=== PATIENT | male | born 2000 | race Caucasian/White ===

== ENCOUNTER 2022-02-10 02:52 | Emergency (ER) | payer BC, SELFPAY ==
[2022-02-10] VITALS (10 sets, daily range): BP systolic 110–135; BP diastolic 66–79; PULSE 44–65; RESP 18; TEMP 36.7; O2SAT 98–100; BMI 23.0
--- NOTE | 2022-02-10 02:57 | CRLHL7_ITS ---
For Patients: As a result of the Century Cures Act, medical imaging exams and procedure reports are released immediately into your electronic medical record. You may view this report before your referring provider. If you have questions, please contact your health care provider. INDICATION: Abdominal pain TECHNIQUE: CT abdomen and pelvis acquired with 81 cc Isovue 370 IV contrast. COMPARISON: None FINDINGS: Lower chest: Unremarkable. Liver: Unremarkable. Spleen: Unremarkable. Pancreas: Unremarkable. Gallbladder and bile ducts: Unremarkable. Adrenal glands: Unremarkable. Kidneys: Unremarkable. GI tract: Unremarkable. Appendix is normal. Vascular structures: Unremarkable. Lymph nodes: Unremarkable. Miscellaneous: Unremarkable. No free air or significant free fluid. Pelvic Organs: Unremarkable. Bones: Unremarkable for age. IMPRESSION: Unremarkable CT of the abdomen and pelvis. Please note that all CT scans at this facility use dose modulation, iterative reconstruction, and/or weight-based dosing when appropriate to reduce radiation dose to as low as reasonably achievable. Dictated by Hillary Pepper MD @ 02/10/2022 4:02:12 AM (Electronically Signed)
[2022-02-10] MEDS: 0.9 % SODIUM CHLORIDE 1000 ml 1,000 ML IV (03:05)
[2022-02-10 03:13] LABS: Lactate* 1.2 mmol/L (0.5-1.9)
[2022-02-10] MEDS: KETOROLAC 30 MG/ML inj IVP (03:13)
[2022-02-10 03:19] LABS: Basophils Percent Auto 0.3 % (0.0-3.0); Eosinophils Percent Auto 0.6 % (0.0-7.0); Hemoglobin* 16.2 gm/dL (13.5-17.5); Immature Granulocytes Pct Auto 0.7 %; Lymphocytes Percent Auto 12.8 % (20-44); Mean Corpuscular HGB Conc 36 gm/dL (32-36); Mean Corpuscular Hemoglobin 32 pg (26-34); Mean Corpuscular Volume 88 fL (80-100); Monocytes Percent Auto 5.2 % (0.0-11.0); Neutrophils Percent Auto 80.4 % (42.0-72.0); Platelet Count* 234 K/uL (140-440); RDW Coefficient of Variation % 11.9 % (11.5-15.5); Red Blood Count 5.09 m/uL (4.30-5.90); White Blood Count* 11.73 K/uL (4.50-11.00)
[2022-02-10 03:20] LABS: Slide Review Reflex No
[2022-02-10 03:27] LABS: Albumin* 5.1 g/dL (3.3-5.0); Chloride* 106 mmol/L (96-114)
[2022-02-10 03:28] LABS: Potassium* 3.2 mmol/L (3.6-5.1); Sodium* 139 mmol/L (135-149)
--- NOTE | 2022-02-10 03:29 | ED.ABDPAIN ---
HPI - Abdominal Pain General Chief Complaint: Abdominal Pain Stated Complaint: Stomach hurts Time Seen by Provider: 02/10/22 02:54 History of Present Illness HPI narrative: Pt is a 21 year old gentleman who comes in with 8 hours of midabdominal pain. No radiation. No change in his bowels. No fever or chills. Pain is severe and sharp. No dysuria. Pt has not had any recent change in his weight or night sweats. Pt has no nausea or vomiting. No sick contacts or travel. Pt has not taken any medications at home for his symptoms. Related Data Home Medications Medication Instructions Recorded Confirmed No Known Home Medications 02/10/22 02/10/22 Allergies Allergy/AdvReac Type Severity Reaction Status Date / Time No Known Drug Allergies Allergy Verified 02/10/22 03:01 Review of Systems Status of ROS Reports: 10 or more systems reviewed and unremarkable except as noted in History and below [facility] Medical History No significant past medical history Surgical History No significant past surgical history Social History Smoking Status: Never smoker Do you use any of these nicotine containing products: None Second hand tobacco smoke exposure: No How often do you have a drink containing alcohol: never How often do you have six or more drinks on one occasion: Never AUDIT-C Alcohol total score: 0 Non-prescribed substance use: marijuana (any form) Exam Narrative: Exam Narrative: EXAM GENERAL: Patient appears comfortable and well. EYES: No scleral icterus. ENT: Tympanic membranes and oropharynx normal. THYROID: no thyroid nodules or thyromegaly. LYMPH: No supraclavicular or cervical lymphadenopathy. SKIN: Visible skin seen during exam normal or with benign process only. EXT: No dependent lower extremity pedal edema. HEART: Regular rate and rhythm with no murmurs, rubs, or gallops. LUNGS: Clear to auscultation bilaterally with no crackles or wheezes. ABD: Soft, non tender, non distended. PSYCH: Good eye contact, speech is not pressured. Const: Vital Signs, click to edit/add: Vital Signs - 24 hr 02/10/22 02:59 02/10/22 03:13 02/10/22 03:19 Temperature 98.1 F 98.1 F Pulse Rate 60 Pulse Rate [Right Pulse Oximeter] 65 Respiratory Rate 18 18 Blood Pressure 120/66 Blood Pressure [Ri ght Upper Arm] 135/79 Pulse Oximetry 99 100 Oxygen Delivery Me thod Room Air 02/10/22 03:00 02/10/22 03:49 Temperature 98.1 F Pulse Rate Pulse Rate [Right Pulse Oximeter] Respiratory Rate Blood Pressure Blood Pressure [Ri ght Upper Arm] Pulse Oximetry 98 Oxygen Delivery Me thod Course Course Hospital Course: Pt seen and examined. Pt received one liter ns and 30 mg of zofran iv. CBC, CMP, Lactate, Amylase, UA, CT abd and pelvis with IV contrast ordered. Reevaluation(s) Reevaluation #1: CT abd and pelvis, Lactate, Amylase normal. CBC shows mild elevation of white blood count. Time: 04:16 Vital Signs Vital signs: Initial Vital Signs Temperature 98.1 F 02/10/22 02:59 Temperature Source Temporal Artery Scan 02/10/22 02:59 Pulse Rate 65 02/10/22 02:59 Respiratory Rate 18 02/10/22 02:59 Blood Pressure 135/79 02/10/22 02:59 Blood Pressure Mean 97 02/10/22 02:59 Blood Pressure Position Supine 02/10/22 02:59 Pulse Oximetry 99 02/10/22 02:59 Oxygen Delivery Method 02/10/22 02:59 Vital Signs Temperature 98.1 F 02/10/22 02:59 Pulse Rate 65 02/10/22 02:59 Respiratory Rate 18 02/10/22 02:59 Blood Pressure 135/79 02/10/22 02:59 Pulse Oximetry 99 02/10/22 02:59 Oxygen Delivery Method 02/10/22 02:59 Temperature 98.1 F 02/10/22 03:49 Pulse Rate 60 02/10/22 03:19 Respiratory Rate 18 02/10/22 03:19 Blood Pressure 120/66 02/10/22 03:19 Pulse Oximetry 100 02/10/22 03:19 Oxygen Delivery Method 02/10/22 02:59 MDM - Abdominal Pain MDM Narrative Medical decision making narrative: Pt presents with severe abd pain. Workup shows only leukocytosis. CT abd and pelvis normal. Exam normal. Vitals normal. Pt given 1 liter normal saline and 30 mg of Toradol. Still having pain. Given Tylenol 1000 mg. Unable to produce a urine sample. At this time, will treat with symptomatic care and watchful waiting. Discharged with close follow up with tylenol, motrin, rest and fluids. Differential Diagnosis Differential diagnosis: Likely abdominal pain, acute appendicitis, calculus of kidney, constipation, diverticulitis, endometriosis, gastroenteritis, pancreatitis and small bowel obstruction Lab Data Labs: Lab Results 02/10/22 02/10/22 02/10/22 Range/Units 03:00 03:00 03:00 WBC 11.73 H (4.50-11.00) K/uL RBC 5.09 (4.30-5.90) m/uL Hgb 16.2 (13.5-17.5) gm/dL Hct 45.0 (37.0-53.0) % MCV 88 (80-100) fL MCH 32 (26-34) pg MCHC 36 (32-36) gm/dL RDW Coeff of Sharri 11.9 (11.5-15.5) % Plt Count 234 (140-440) K/uL Neut % (Auto) 80.4 H (42.0-72.0) % Lymph % (Auto) 12.8 L (20-44) % [place] % (Auto) 5.2 (0.0-11.0) % Eos % (Auto) 0.6 (0.0-7.0) % Baso % (Auto) 0.3 (0.0-3.0) % Neut # (Auto) 9.40 H (1.7-7.0) K/uL Lymph # (Auto) 1.50 (0.90-2.90) K/uL [place] # (Auto) 0.60 (0.00-0.90) K/UL Eos # (Auto) 0.10 (0.00-0.50) K/uL Baso # (Auto) 0.00 (0.00-0.30) K/uL Abs Immat Gran (auto) 0.10 (0.00-0.30) K/uL Imm/Tot Granulo (auto) 0.7 % Sodium 139 (135-149) mmol/L Potassium 3.2 L (3.6-5.1) mmol/L Chloride 106 (96-114) mmol/L Carbon Dioxide 19 L (20-32) mmol/L BUN 18 (5-24) mg/dL Creatinine 0.8 (0.6-1.2) mg/dL Estimated Creat Clear 157.22 Estimated GFR 131 ml/min Glucose 133 H (60-115) mg/dL Lactate 1.2 (0.5-1.9) mmol/L Calcium 10.0 (8.7-10.8) mg/dL Total Bilirubin 0.6 (0.1-1.5) mg/dL AST 28 (12-35) U/L ALT 29 (4-50) U/L Alkaline Phosphatase 118 (65-260) U/L Total Protein 8.1 (6.0-8.3) g/dL Albumin 5.1 H (3.3-5.0) g/dL Amylase 110 H (18-89) U/L SARS-CoV-2 (PCR) (Negative) Influenza Type A (PCR) (Negative) Influenza Type B (PCR) (Negative) RSV (PCR) (Negative) 02/10/22 Range/Units 03:03 WBC (4.50-11.00) K/uL RBC (4.30-5.90) m/uL Hgb (13.5-17.5) gm/dL Hct (37.0-53.0) % MCV (80-100) fL MCH (26-34) pg MCHC (32-36) gm/dL RDW Coeff of Sharri (11.5-15.5) % Plt Count (140-440) K/uL Neut % (Auto) (42.0-72.0) % Lymph % (Auto) (20-44) % [place] % (Auto) (0.0-11.0) % Eos % (Auto) (0.0-7.0) % Baso % (Auto) (0.0-3.0) % Neut # (Auto) (1.7-7.0) K/uL Lymph # (Auto) (0.90-2.90) K/uL [place] # (Auto) (0.00-0.90) K/UL Eos # (Auto) (0.00-0.50) K/uL Baso # (Auto) (0.00-0.30) K/uL Abs Immat Gran (auto) (0.00-0.30) K/uL Imm/Tot Granulo (auto) % Sodium (135-149) mmol/L Potassium (3.6-5.1) mmol/L Chloride (96-114) mmol/L Carbon Dioxide (20-32) mmol/L BUN (5-24) mg/dL Creatinine (0.6-1.2) mg/dL Estimated Creat Clear Estimated GFR ml/min Glucose (60-115) mg/dL Lactate (0.5-1.9) mmol/L Calcium (8.7-10.8) mg/dL Total Bilirubin (0.1-1.5) mg/dL AST (12-35) U/L ALT (4-50) U/L Alkaline Phosphatase (65-260) U/L Total Protein (6.0-8.3) g/dL Albumin (3.3-5.0) g/dL Amylase (18-89) U/L SARS-CoV-2 (PCR) Negative SARS-CoV-2 (Negative) Influenza Type A (PCR) Negative PCR FLU A (Negative) Influenza Type B (PCR) Negative PCR FLU B (Negative) RSV (PCR) Negative PCR RSV (Negative) Discharge Plan Discharge Clinical Impression: Abdominal pain Condition: Stable Instructions: Abdominal Pain (ED) Additional Instructions: Rest Fluids Tylenol Motrin Activity Level: No Restrictions Discharge Diet: Regular Prescriptions: No Action No Known Home Medications Stand Alone Forms: My[employer] Info Instructions
[2022-02-10 03:30] LABS: Amylase* 110 U/L (18-89); Bilirubin Total* 0.6 mg/dL (0.1-1.5); Carbon Dioxide* 19 mmol/L (20-32); Creatinine* 0.8 mg/dL (0.6-1.2); Est. Creatinine Clearance* 157.22; Estimated Glomerular Filt Rate 131 ml/min; Total Protein* 8.1 g/dL (6.0-8.3)
[2022-02-10 03:31] LABS: Alanine Aminotransferase* 29 U/L (4-50); Alkaline Phosphatase* 118 U/L (65-260); Aspartate Amino Transferase* 28 U/L (12-35); Blood Urea Nitrogen* 18 mg/dL (5-24); Glucose* 133 mg/dL (60-115)
[2022-02-10 03:51] LABS: PCR FLU A Negative PCR FLU A (Negative); PCR FLU B Negative PCR FLU B (Negative); PCR RSV Negative PCR RSV (Negative)
[2022-02-10 03:52] LABS: SARS PCR* Negative SARS-CoV-2 (Negative)
--- NOTE | 2022-02-10 04:24 | ED.NURSE ---
MD Diaz updated on pt pain med request, pt stating he is having more pain, MD Diaz in to see pt for dc info and address pain. new tylenol order.
[2022-02-10] MEDS: ACETAMINOPHEN 500 MG TABLET 1000 MG PO (04:31)
== END 2022-02-10 04:40 | disposition home or self-care (01) ==
PROVIDERS: Emergency Provider Internal Medicine
DX: R10.9 Unspecified abdominal pain (principal)
CPT/HCPCS: 36415; 74177; 80053; 81003; 82150; 83605; 85025; 87502; 87634; 87635; 94761; 96374; 99283; 99285; A9270; J1885; J7030; Q9967

== ENCOUNTER 2022-04-23 23:19 | Emergency (ER) | payer OTHER, SELFPAY ==
[2022-04-23 23:26] VITALS: BP 143/95; PULSE 70; RESP 16; TEMP 37.3; O2SAT 99
--- NOTE | 2022-04-23 23:38 | CRLHL7_ITS ---
For Patients: As a result of the Cures Act, medical imaging exams and procedure reports are released immediately into your electronic medical record. You may view this report before your referring provider. If you have questions, please contact your health care provider. Indication: Pain after punching Technique: Three views right hand Comparison: None Findings: Bones: Displaced fracture through the mid right 5th metacarpal with significant dorsal apex angulation. Joint spaces: Unremarkable. Soft tissues: Soft tissue swelling over the 5th metacarpal. Impression: Displaced fracture through the mid right 5th metacarpal with significant dorsal apex angulation Dictated by Hillary Pepper MD @ 04/24/2022 12:47:29 AM (Electronically Signed)
--- NOTE | 2022-04-24 00:10 | ED_ITS ---
HPI - General Adult General Chief complaint: Extremity Pain/Injury, Upper Stated complaint: Fall w/right hand injury Time Seen by Provider: 04/24/22 00:10 Source: patient Mode of arrival: ambulatory Limitations: no limitations History of Present Illness HPI narrative: 22-year-old male with no significant past medical history presents to the emergency department immediately after an injury in his home. He reports that he accidentally slipped down a couple of stairs, impulsively became frustrated and punched the stair. He had immediate pain and deformity in the 5th mid shaft metacarpal area on the right hand. He is right-handed. Notes no numbness and tingling. Only has pain in the area of deformity. No pain in the wrist, fingers or other areas, no other areas of injury. No broken skin noted. No recent fever or illness. He has applied ice but has not taken any medication to help with his symptoms. He has no other concerns today. Pain is constant and achy. Does not radiate. No numbness. No prior similar history of symptoms or surgeries. Past medical history benign, no major long-term health problems. Received all typical childhood vaccinations, no long-term medications, no allergies. Socially denies any alcohol or illicit substance intoxication today. ROS is notable for no other generalized, musculoskeletal, neurological skin or respiratory concerns. Related Data Home Medications Medication Instructions Recorded Confirmed No Known Home Medications 02/10/22 02/10/22 Allergies Allergy/AdvReac Type Severity Reaction Status Date / Time No Known Drug Allergies Allergy Verified 02/10/22 03:01 [facility] Medical History No significant past medical history Surgical History No significant past surgical history Social History Smoking Status: Never smoker Do you use any of these nicotine containing products: None Second hand tobacco smoke exposure: No How often do you have a drink containing alcohol: never How often do you have six or more drinks on one occasion: Never AUDIT-C Alcohol total score: 0 Non-prescribed substance use: marijuana (any form) Exam Const: Vital Signs, click to edit/add: Vital Signs - 24 hr 04/23/22 23:26 Temperature 99.1 F Pulse Rate [Left P ulse Oximeter] 70 Respiratory Rate 16 Blood Pressure [Le ft Upper Arm] 143/95 H Pulse Oximetry 99 Oxygen Delivery Me thod Room Air Documenting provider has reviewed patient's vital signs: yes Common normals: no apparent distress and alert General appearance: cooperative, comfortable and well kempt Orientation/consciousness: Yes awake Other: Good historian, no intoxication HENMT: Common normals: normocephalic and head/scalp atraumatic Head and scalp: normocephalic and atraumatic Face and sinus: normal facial exam Eye: Common normals: EOMs intact bilaterally General eye: normal appearance of both eyes Other: Equal pupils, normal gaze and visual tracking. Neck & C-Spine: General: normal visual inspection Resp: Common normals: normal respiratory effort, no use of accessory muscles and clear to auscultation bilaterally Effort & inspection: able to speak in complete sentences Auscultation: clear to auscultation bilaterally Cardio: Common normals: regular rate, regular rhythm, S1 normal heart sound, S2 normal heart sound, no murmurs and peripheral pulses 2+ throughout Rate: regular rate Rhythm: regular rhythm Heart sounds: S1 normal and S2 normal Peripheral pulses: pulses 2+ throughout Extremity: Other: Right elbow with normal range of motion, no tenderness or deformity. Right wrist with no tenderness, deformity or swelling. The fingers of the right hand abduct and adduct normally flex and extend normally. There is obvious deformity and swelling at the mid shaft 5th metacarpal on the right hand. Seems to be some dorsal displacement. Swelling noted, some bruising setting and but no broken skin. The left hand has normal flexion extension, range of motion with no signs of injury. He has good radial pulses bilaterally and normal capillary refill in all fingers. Sensation seems intact. Neuro: Sensorium/orientation: awake and alert Gait (neuro): normal gait Motor exam: no tremor noted Psych: Appearance: well kempt Attitude: engaged Activity/motor behavior: appropriate eye contact Attention/concentration: attention grossly intact Insight: insight good Judgement: judgment good Skin: Common normals: no rashes or lesions noted General skin exam: no rashes or lesions noted Course Vital Signs Vital signs: Initial Vital Signs Temperature 99.1 F 04/23/22 23:26 Temperature Source Temporal Artery Scan 04/23/22 23:26 Pulse Rate 70 02/09/23 23:26 Pulse Rhythm 04/23/22 23:26 Respiratory Rate 16 04/23/22 23:26 Blood Pressure 143/95 H 04/23/22 23:26 Blood Pressure Mean 111 04/23/22 23:26 Blood Pressure Position Sitting 04/23/22 23:26 Pulse Oximetry 99 04/23/22 23:26 Oxygen Delivery Method 04/23/22 23:26 Vital Signs Temperature 99.1 F 04/23/22 23:26 Pulse Rate 70 04/23/22 23:26 Respiratory Rate 16 04/23/22 23:26 Blood Pressure 143/95 H 04/23/22 23:26 Pulse Oximetry 99 04/23/22 23:26 Oxygen Delivery Method 04/23/22 23:26 Temperature 99.1 F 04/23/22 23:26 Pulse Rate 70 04/23/22 23:26 Respiratory Rate 16 04/23/22 23:26 Blood Pressure 143/95 H 04/23/22 23:26 Pulse Oximetry 99 04/23/22 23:26 Oxygen Delivery Method 04/23/22 23:26 Medical Decision Making MDM Narrative Medical decision making narrative: Suspect 5th metacarpal fracture, ibuprofen given. Awaiting results Update: Confirmed 5th metacarpal fracture with distal dorsal angulation. Counseled patient on findings. He has intact neurovascular status. May still need surgery. Will arrange orthopedic follow-up. No indications to wake orthopedic provider overnight. Hematoma block placed with attempt to gently massaged the pieces into better alignment. Unfortunately this did not go well as there was still significant force from the muscular in tenderness forces the kept wanting to pull the pieces out of alignment. Patient is placed in an ulnar gutter splint with dorsal angulation, well tolerated. Neurovascular status inta ct following attempted reduction. X-rays not repeated. Will arrange orthopedic follow-up. Counseled on pain control, use of splint at work. Work ability forms completed. He does not have any risk factors for anesthesia and is medically cleared at this time. Imaging Data XR hand: My impression: On skilled boxer's fracture, 5th metatarsal mid shaft with angulation dorsal displacement of distal fragment Radiologist's impression: Impression: Displaced fracture through the mid right 5th metacarpal with significant dorsal apex angulation Discharge Plan Discharge Clinical Impression: Closed fracture of 5th metacarpal Patient Disposition: Home w/ Parent or Adult Condition: Stable Instructions: Hand Fracture (ED) Additional Instructions: As we discussed, there is a fracture through the outside bone in your hand that controls her pinky. Because of the muscles and tendons that work on the hand, the 2 fragments are pulled apart more than I would like. This may require surgery. We did attempt to manipulate the bones back into place somewhat. You will continue to wear this splint, do not get it wet. You may not remove it to shower. It is okay to cover it with several layers of plastic bags, plastic rapid cetera to carefully shower with help but please do not get it wet. For pain, take Tylenol 1000 mg every 6 hours as needed and or ibuprofen 600 mg every 6 hours as needed. Now that it is it is splint, ice will not be helpful. We will give you a sling to wear to help protect the arm. You do not need to wear this but it might be a good idea while at work as an extra layer of protection until you are seen by the orthopedic provider. The orthopedic team will call you tomorrow and make arrangements for you to be seen in the clinic. As we discussed, this might require surgery. Activity Level: Activity as Tolerated Activity Detail: See work restrictions Discharge Diet: Regular Prescriptions: No Action No Known Home Medications Follow Up/Referrals: Marcelo Boswell MD [Staff Physician] - 2 Days (1st available ortho, hand fracture) Provider,Not a Local [Referring] - Stand Alone Forms: [employer] Info Instructions
[2022-04-24] MEDS: IBUPROFEN 400 MG TABLET 800 MG PO (00:13)
[2022-04-24 01:11] VITALS: BP 128/66; PULSE 87; RESP 16
== END 2022-04-24 01:12 | disposition home or self-care (01) ==
PROVIDERS: Emergency Provider Family Medicine; PCP Family Medicine
DX: S62.606A Fracture of unspecified phalanx of right little finger, initial encounter for closed fracture (principal); W10.9XXA Fall (on) (from) unspecified stairs and steps, initial encounter
CPT/HCPCS: 29125; 73130; 99283; A9270

== ENCOUNTER 2022-04-29 10:13 | Day surgery (SDC) | payer OTHER, SELFPAY ==
[2022-04-29] VITALS (7 sets, daily range): BP systolic 115–120; BP diastolic 72–97; PULSE 60–100; RESP 16; TEMP 36.7–37.4; O2SAT 97–100; BMI 23.6
[2022-04-29] MEDS: LACTATED RINGERS 1000 ML 1,000 ML 100 ML IV (10:25)
[2022-04-29] MEDS: SODIUM CHLORIDE 0.9 % (FLUSH) 10 ML SYRINGE IVF (10:59)
[2022-04-29] MEDS: MIDAZOLAM HCL 1 MG/ML inj IVP (12:47)
[2022-04-29] MEDS: fentaNYL 100 MCG/2 ML inj IVP (12:47)
--- NOTE | 2022-04-29 13:03 | SUR.PREOP ---
TIME?OUT:?1245 PT/RN/MDA?VERIFICATION?OF?SURGICAL?SITE Right arm,?PROCEDURE nerve block,?AND?CONSENT OBTAINED?PRIOR?TO?INVASIVE?PROCEDURE.
--- NOTE | 2022-04-29 13:11 | P.NB_ITS ---
Nerve Block Nerve Block Time Seen by Provider: 12:45 Date Seen: 04/29/22 Type of block requested by surgeon for post-operative analgesia: axillary Side: right Time out performed: Yes Verification of patient name: Yes Verification of date of : Yes Site marking: site marked Name of person performing procedure: Tima Continuous monitoring Was continuous monitoring of O2 sat, B/P, alarm security or surveillance monitor, recorded every 15 minutes?: Yes Procedure Checklist: sterile prep, needles and gloves Ultrasound guided. Images saved: Yes Medications given in 5ml increments after negative aspiration: Ropivicaine %: 0.5 mL: 10 Needle gauge: 22 and Lidocaine %: 2 mL: 15 Patient tolerated procedure well: Yes Additional comments: Needle noted adjacent to nerve Block Charges Block Charge (with Pro Fee): Brachial Plexus Use of Ultrasound Machine for Block: Yes- US Guidance/pain block
--- NOTE | 2022-04-29 13:15 | W.ANESCHARGE ---
Anesthesia Charges Start Date/Time Anesthesia Start Date: 04/29/22 Anesthesia Start Time: 14:26 Stop Date/Time Anesthesia Stop Date: 04/29/22 Anesthesia Stop Time: 15:13
--- NOTE | 2022-04-29 14:15 | CRLHL7_ITS ---
For Patients: As a result of the Cures Act, medical imaging exams and procedure reports are released immediately into your electronic medical record. You may view this report before your referring provider. If you have questions, please contact your health care provider. Indication: Right 5th Metacarpal ORIF Technique: Two fluoroscopic images of the right 5th metacarpal. Fluoroscopic time 19.4 seconds. IMPRESSION: Fluoroscopic guidance for open reduction internal fixation of 5th metacarpal fracture. Dictated by Mode Whittington MD @ 04/29/2022 3:42:17 PM (Electronically Signed)
[2022-04-29] MEDS: NEOMYCIN/BACITRACIN/POLYMYXIN B 1 APPLIC TOPICAL (14:59)
--- NOTE | 2022-04-29 15:07 | P.ORPRC_ITS ---
Procedure Note Date of procedure: 04/29/22 Procedure: PREOPERATIVE DIAGNOSES: 1. Right 5th metacarpal fracture, closed, acute, transverse, significantly angulated and displaced POSTOPERATIVE DIAGNOSES: 1. Right 5th metacarpal fracture, closed, acute, transverse, significantly angulated and displaced NAME OF OPERATION: 1. Right 5th metacarpal open reduction internal fixation 2. 17884 - intraoperative fluoroscopy up to 1 hour. SURGEON: Marcelo Boswell MD INSIDE SALES ACCOUNT REPRESENTATIVE: Emanuel GODINEZ ANESTHESIA: Axillary block + MAC IMPLANTS: Acumed INnate intramedullary nail TOURNIQUET: None INDICATIONS: The patient is a pleasant, 22-year-old male who sustained a right 5th metacarpal fracture recently after falling down some stairs and subsequently punching the stair. They were evaluated at a medical facility. X-rays revealed a metacarpal fracture that was primarily transverse at the mid diaphyseal region, significant angulated and displaced. They had difficulty with use of the extremity. Given these findings and consistent with the patient's request, surgery was recommended to stablize the fracture. FINDINGS: Right closed, displaced, angulated 5th metacarpal fracture. PROCEDURE: Following a thorough discussion of risks, benefits, and alternatives, consent was obtained and the operative extremity was marked. The patient was brought to the operating room and placed supine on the operating table. Induction of anesthesia was achieved. Appropriate time out was performed identifying proper patient, site and procedure. 2 g IV Ancef was administered within 1 hour of incision preoperatively. The right upper extremity was prepped and draped in the appropriate sterile fashion using ChloraPrep prep. A longitudinal incision was made overlying the metacarpal head distally. Sharp incision through skin and blunt dissection through subcutaneous tissue and extensor hunt allowed us to gain access to the metacarpal. The fracture was reduced and held with finger pressure. A guide pin was placed and confirmed on C-arm fluoroscopic imaging on both planes to be intramedullary and in the appropriate centered position. The pin started on the dorsal 1/3 of the metacarpal head. Thereafter, the metacarpal was reamed, measured, and the noncompressive intramedullary nail was placed. Excellent securing of the metacarpal fracture achieved. Thorough irrigation normal saline was performed. Fluoroscopic imaging was obtained in both planes to confirm fracture alignment was appropriate, the intramedullary nail buried within the metacarpal head, and contacting the isthmus cortex appropriately. Again, the wound was thoroughly irrigated with normal saline. Closure performed with 4-0 nylon. Soft dressings applied and the patient was woken from anesthesia and transferred to the PACU in stable condition. PLAN: 1. Elevate operative extremity. 2. Ice, acetominphen or ibuprofen PRN. 3. Percocet for pain as needed. 4. Follow up with PA visit in 10-12 days, wound check. Then follow-up at the 6 week wilfred from surgery with me with repeat x-rays right hand-three views.
--- NOTE | 2022-04-29 15:12 | W.ANESCHARGE ---
Anesthesia Charges Start Date/Time Anesthesia Start Date: 04/29/22 Anesthesia Start Time: 14:26 Stop Date/Time Anesthesia Stop Date: 04/29/22 Anesthesia Stop Time: 15:13
== END 2022-04-29 15:50 | disposition home or self-care (01) ==
PROVIDERS: PCP Family Medicine; Visit Provider Orthopaedic Surgery Sports Medicine
PROC: (CPT 26615; principal; 2022-04-29 14:15)
DX: S62.396A Other fracture of fifth metacarpal bone, right hand, initial encounter for closed fracture (principal)
CPT/HCPCS: 26615; 01830; 64415; 73140; 76000; 76942; A4580; C1713; J2250; J2704; J2795; J3010; J7120

== ENCOUNTER 2022-05-08 10:42 | Outpatient (RCR) | payer OTHER, SELFPAY | END 2022-10-01 23:59 | disposition home or self-care (01) | PROVIDERS: PCP Family Medicine; Visit Provider Orthopaedic Surgery Sports Medicine | DX: S62.308A Unspecified fracture of other metacarpal bone, initial encounter for closed fracture (principal); Z51.89 Encounter for other specified aftercare | CPT/HCPCS: 97110; 97165; L3806; X5282 ==